=== PATIENT | male | born 1965 | race Caucasian/White ===

== ENCOUNTER 2016-08-01 02:31 | Emergency (ER) | payer OTHER ==
[~2016-08-01] VITALS: Ht 167.6 cm; Wt 108.0 kg
[2016-08-01 02:34] VITALS: BP 186/86; PULSE 110; RESP 16; TEMP 98.5; O2SAT 94
[2016-08-01] MEDS ORDERED: HYDR25TA35 PO (02:47)
[2016-08-01] MEDS ORDERED: LOSA100T PO (02:47)
[2016-08-01] MEDS ORDERED: NOVOLOGP2 SQ (02:47)
[2016-08-01] MEDS ORDERED: CARV3.12 PO (02:47)
[2016-08-01] MEDS ORDERED: HUMALOG SQ (02:47)
[2016-08-01] MEDS ORDERED: ATOR40TA16 PO (02:47)
[2016-08-01] MEDS ORDERED: FISHCAP4 PO (02:47)
[2016-08-01] MEDS ORDERED: AMLO10TA2 PO (02:47)
[2016-08-01 02:50] VITALS: RESP 16; O2SAT 90
[2016-08-01 02:50] LABS: MEAN CORPUSCULAR HGB CONC 36.4 % (32.0-36.0)
[2016-08-01] MEDS: RESP: ALBUTEROL 2.5 MG/IPRATROPIUM 0.5 MG NEB (SCH) INH (02:57)
[2016-08-01 03:00] VITALS: O2SAT 95
[2016-08-01] MEDS ORDERED: SODIUM CHLORIDE 0.9% FLUSH 5 ML FLUSH IVF PRN (03:00)
--- NOTE | 2016-08-01 03:02 | PD ---
HPI Chief Complaint: GI Complaint Time Seen by Provider: 02:41 Travel History International Travel<30 days: No Contact w/Intl Traveler<30days: No Traveled to known affect area: No History of Present Illness HPI The patient is a 51-year-old male who presents to the emergency department for hemoptysis. The patient states her last several days she's had a dry nonproductive cough, somewhat irritated, and has been using over-the- counter Mucinex. However, the patient had an episode of hemoptysis earlier tonight with several large blood clots. EMS states and they arrived the patient 's initial O2 saturation on room air was 90%, and the emergency department was 94%. The patient denies any history of tobacco use, lung cancer, or chronic bronchitis. The patient has recently traveled from [place] to [place], [place] , but denies any recent hospitalizations or surgeries. The patient states the hemoptysis was from coughing, he had no vomiting. He denies any dark colored stools. The patient does take a baby aspirin for history of previous quadruple bypass. The patient is in town for [facility], does not have a local primary physician. He does note a history of diabetes and chronic kidney disease. The patient denies any known history of pulmonary embolism or DVT. He denies any unusual swelling of the lower extremities. PFSH Past Medical History High Cholesterol: Yes Hypertension: Yes Tetanus Vaccination: < 5 Years Influenza Vaccination: No Past Surgical History Coronary Artery Bypass Graft: Yes (11 YRS AGO) Social History Alcohol Use: Yes (SOCIALLY) Tobacco Use: No Substance Use: No Allergies-Medications (Allergen,Severity, Reaction): Coded Allergies: Niacin (Verified Allergy, Mild, RASH, 08/01/16) Reported Meds & Prescriptions Reported Meds & Active Scripts Active Reported Humalog Inj (Insulin Human Lispro) 1,000 Unit/10 Ml Vial 65 Units SQ BIDAC Novolog Inj (Insulin Aspart) 1,000 Unit/10 Ml Vial 40 Units SQ TIDAC Amlodipine (Amlodipine Besylate) 10 Mg Tab 10 Mg PO DAILY Atorvastatin (Atorvastatin Calcium) 40 Mg Tab 40 Mg PO HS Hydralazine (Hydralazine HCl) 25 Mg Tab 25 Mg PO DAILY Take with a meal Losartan (Losartan Potassium) 100 Mg Tab 100 Mg PO DAILY Fish Oil + D3 (Fish Oil-Cholecalciferol) 1,200-1,000 Mg-Unit Cap 1 Cap PO DAILY Carvedilol 3.125 Mg Tab 3.125 Mg PO BID Review of Systems Except as stated in HPI: all other systems reviewed are Neg General / Constitutional: No: Fever HENT: No: Lightheadedness Cardiovascular: No: Chest Pain or Discomfort Respiratory: Positive: Cough, Shortness of Breath, Hemoptysis Gastrointestinal: No: Nausea, Vomiting, Abdominal Pain Musculoskeletal: No: Edema Neurologic: No: Dizziness Physical Exam Narrative GENERAL: Awake, alert, nontoxic-appearing 51-year-old male who appears his stated age and is in no acute respiratory distress. SKIN: Warm and dry. HEAD: Atraumatic. Normocephalic. EYES: Pupils equal and round. No scleral icterus. No injection or drainage. ENT: No nasal bleeding or discharge. Dry blood in the posterior oropharynx. NECK: Trachea midline. No JVD. CARDIOVASCULAR: Regular, tachycardic with a heart rate of 105. RESPIRATORY: No accessory muscle use. Wheezes noted bilaterally in the lower lung olguin. GASTROINTESTINAL: Abdomen soft, non-tender, nondistended. No rebound tenderness. MUSCULOSKELETAL: No obvious deformities. No clubbing. No cyanosis. No edema. NEUROLOGICAL: Awake and alert. No obvious cranial nerve deficits. Motor grossly within normal limits. Normal speech. PSYCHIATRIC: Appropriate mood and affect; insight and judgment normal. Data Data Last Documented VS Vital Signs Date Time Temp Pulse Resp B/P Pulse Ox O2 Delivery O2 Flow Rate FiO2 08/01/16 06:20 98.4 96 16 163/77 95 Nasal Cannula 2 Orders Complete Blood Count With Diff (08/01/16 02:48) Comprehensive Metabolic Panel (08/01/16 02:48) Act Partial Throm Time (Ptt) (08/01/16 02:48) Prothrombin Time / Inr (Pt) (08/01/16 02:48) Magnesium (Mg) (08/01/16 02:48) Ckmb (Isoenzyme) Profile (08/01/16 02:48) Troponin I (08/01/16 02:48) Iv Access Insert/Monitor (08/01/16 02:48) Electrocardiogram (08/01/16 02:48) Ecg Monitoring (08/01/16 02:48) Oximetry (08/01/16 02:48) Oxygen Administration (08/01/16 02:48) Chest, Single Ap (08/01/16 02:48) Sodium Chloride 0.9% Flush (Ns Flush) (08/01/16 03:00) Albuterol-Ipratropium Neb (Duoneb Neb) (08/01/16 03:00) Ventilation & Perfusion Scan (08/01/16 ) CKMB (08/01/16 02:55) CKMB% (08/01/16 02:55) Labs Laboratory Tests Test 08/01/16 02:55 White Blood Count 15.3 TH/MM3 Red Blood Count 3.52 MIL/MM3 Hemoglobin 10.2 GM/DL Hematocrit 28.0 % Mean Corpuscular Volume 79.4 FL Mean Corpuscular Hemoglobin 28.9 PG Mean Corpuscular Hemoglobin 36.4 % Concent Red Cell Distribution Width 13.0 % Platelet Count 291 TH/MM3 Mean Platelet Volume 8.8 FL Neutrophils (%) (Auto) 70.9 % Lymphocytes (%) (Auto) 18.2 % Monocytes (%) (Auto) 8.8 % Eosinophils (%) (Auto) 1.6 % Basophils (%) (Auto) 0.5 % Neutrophils # (Auto) 10.9 TH/MM3 Lymphocytes # (Auto) 2.8 TH/MM3 Monocytes # (Auto) 1.3 TH/MM3 Eosinophils # (Auto) 0.2 TH/MM3 Basophils # (Auto) 0.1 TH/MM3 CBC Comment AUTO DIFF Differential Comment AUTO DIFF CONFIRMED Prothrombin Time 10.2 SEC Prothromb Time International 0.9 RATIO Ratio Activated Partial 28.7 SEC Thromboplast Time Sodium Level 138 MEQ/L Potassium Level 3.8 MEQ/L Chloride Level 103 MEQ/L Carbon Dioxide Level 19.3 MEQ/L Anion Gap 16 MEQ/L Blood Urea Nitrogen 50 MG/DL Creatinine 2.82 MG/DL Estimat Glomerular Filtration 24 ML/MIN Rate Random Glucose 238 MG/DL Calcium Level 8.1 MG/DL Magnesium Level 1.8 MG/DL Total Bilirubin 0.2 MG/DL Aspartate Amino Transf 15 U/L (AST/SGOT) Alanine Aminotransferase 23 U/L (ALT/SGPT) Alkaline Phosphatase 89 U/L Total Creatine Kinase 119 U/L Creatine Kinase MB 0.9 NG/ML Troponin I LESS THAN 0.02 NG/ML Total Protein 7.6 GM/DL Albumin 2.8 GM/DL MDM Medical Decision Making Medical Screen Exam Complete: Yes Emergency Medical Condition: Yes Medical Record Reviewed: Yes Interpretation(s) EKG reveals sinus tachycardia with a heart rate of 100. Nonspecific T wave changes. Laboratory Tests Test 08/01/16 02:55 White Blood Count 15.3 TH/MM3 Red Blood Count 3.52 MIL/MM3 Hemoglobin 10.2 GM/DL Hematocrit 28.0 % Mean Corpuscular Volume 79.4 FL Mean Corpuscular Hemoglobin 28.9 PG Mean Corpuscular Hemoglobin 36.4 % Concent Red Cell Distribution Width 13.0 % Platelet Count 291 TH/MM3 Mean Platelet Volume 8.8 FL Neutrophils (%) (Auto) 70.9 % Lymphocytes (%) (Auto) 18.2 % Monocytes (%) (Auto) 8.8 % Eosinophils (%) (Auto) 1.6 % Basophils (%) (Auto) 0.5 % Neutrophils # (Auto) 10.9 TH/MM3 Lymphocytes # (Auto) 2.8 TH/MM3 Monocytes # (Auto) 1.3 TH/MM3 Eosinophils # (Auto) 0.2 TH/MM3 Basophils # (Auto) 0.1 TH/MM3 CBC Comment AUTO DIFF Differential Comment AUTO DIFF CONFIRMED Prothrombin Time 10.2 SEC Prothromb Time International 0.9 RATIO Ratio Activated Partial 28.7 SEC Thromboplast Time Sodium Level 138 MEQ/L Potassium Level 3.8 MEQ/L Chloride Level 103 MEQ/L Carbon Dioxide Level 19.3 MEQ/L Anion Gap 16 MEQ/L Blood Urea Nitrogen 50 MG/DL Creatinine 2.82 MG/DL Estimat Glomerular Filtration 24 ML/MIN Rate Random Glucose 238 MG/DL Calcium Level 8.1 MG/DL Magnesium Level 1.8 MG/DL Total Bilirubin 0.2 MG/DL Aspartate Amino Transf 15 U/L (AST/SGOT) Alanine Aminotransferase 23 U/L (ALT/SGPT) Alkaline Phosphatase 89 U/L Total Creatine Kinase 119 U/L Creatine Kinase MB 0.9 NG/ML Troponin I LESS THAN 0.02 NG/ML Total Protein 7.6 GM/DL Albumin 2.8 GM/DL Nuclear medicine ventilation perfusion scan reveals low probability for pulmonary embolism. Differential Diagnosis Differential diagnosis includes bronchitis, pulmonary embolism, lung carcinoma, AV malformation, AV fistula, upper GI bleed, esophageal varices. Narrative Course IV was established, labs are drawn and sent, and the patient was placed on cardiac telemetry monitoring and continuous pulse oximetry monitoring. Chest x- ray was obtained. EKG was ordered and interpreted. CT pulmonary angiogram was ordered to evaluate for pulmonary embolism. The patient's creatinine was 2.82, therefore, CT pulmonary angiogram was canceled. VQ scan was ordered. Chest x- ray was ordered. Laboratory evaluation reveals a white count of 15.3, however, patient is afebrile. Hemoglobin is 10.0. Creatinine is elevated at 2.82, patient does have a history of chronic kidney disease. VQ scan was negative for pulmonary embolism. Most likely the patient may have underlying bronchitis , no evidence of tumor on chest x-ray. The patient is advised to follow-up with his primary physician if symptoms persist as he may need a follow-up with pulmonology for bronchoscopy if symptoms persist. Patient will be treated for bronchitis with prednisone, Zithromax, and albuterol inhaler. He is advised to return if symptoms worsen or progress. Diagnosis Primary Impression: Hemoptysis, unspecified Additional Impression: Bronchitis Patient Instructions: General Instructions Additional Instructions: Medications as directed. Please provide a patient a copy of his VQ scan results , x-ray results, and lab results at discharge. Return sooner if symptoms worsen or progress. Med/Other Pt SpecificInfo: Prescription(s) given Scripts Albuterol 18 GM Inh (Ventolin Hfa 18 GM Inh)90 Mcg/Act Aer2 Puff INH Q4H PRN ( SHORTNESS OF BREATH) #1 INHALER Ref 0 Prov:Hai Sharp MD 08/01/16 Azithromycin (Zithromax Z-Zechariah)250 Mg [id number] Mg PO DIRECTED #1 DSPK Ref 0 500 MG (2 tabs) day 1, then 1 tab days 2-5. Prov:Hai Sharp MD 08/01/16 Prednisone (Deltasone)20 Mg Tab40 Mg PO DAILY 5 Days Ref 0 Prov:Hai Sharp MD 08/01/16 Disposition: 01 DISCHARGE HOME Condition: Stable Hai Sharp MD Aug 01, 2016 03:02
[2016-08-01 03:03] LABS: AUTOMATED NEUTROPHIL # 10.9 TH/MM3 (1.8-7.7); BASOPHIL # 0.1 TH/MM3 (0-0.2); BASOPHIL % 0.5 % (0.0-2.0); EOSINOPHIL # 0.2 TH/MM3 (0-0.4); EOSINOPHIL % 1.6 % (0.0-4.0); LYMPH % 18.2 % (9.0-44.0); LYMPHOCYTE # 2.8 TH/MM3 (1.0-4.8); MEAN CELL VOLUME 79.4 FL (80.0-100.0); MEAN CORPUSCULAR HEMOGLOBIN 28.9 PG (27.0-34.0); MONO % 8.8 % (0.0-8.0); NEUT % 70.9 % (16.0-70.0); PLATELET COUNT 291 TH/MM3 (150-450); RED BLOOD COUNT 3.52 MIL/MM3 (4.50-5.90); WHITE BLOOD COUNT 15.3 TH/MM3 (4.0-11.0)
[2016-08-01 03:06] LABS: HEMO FLAGS AUTO DIFF
[2016-08-01 03:15] LABS: APTT (PATIENT) 28.7 SEC (24.3-30.1); INTERNATIONAL NORMALIZED RATIO 0.9 RATIO; PROTHROMBIN TIME - PATIENT 10.2 SEC (9.8-11.6)
[2016-08-01 03:25] LABS: ANION GAP 16 MEQ/L (5-15); AST (GOT) 15 U/L (15-37); BICARBONATE 19.3 MEQ/L (21.0-32.0); BLOOD UREA NITROGEN 50 MG/DL (7-18); CHLORIDE 103 MEQ/L (98-107); GLOMERULAR FILTRATION RATE 24 ML/MIN (>89); MAGNESIUM 1.8 MG/DL (1.5-2.5); POTASSIUM 3.8 MEQ/L (3.5-5.1); SODIUM (NA) 138 MEQ/L (136-145)
--- NOTE | 2016-08-01 03:35 | RADRPT ---
EXAM DATE/TIME: 08/01/2016 03:18 [facility] COMPARISON: No previous studies available for comparison. INDICATIONS : Short of breath. MEDICAL HISTORY : Cardiovascular disease. SURGICAL HISTORY : CABG. ENCOUNTER: Initial ACUITY: 1 day PAIN SCORE: 6/10 LOCATION: Bilateral chest FINDINGS: Median sternotomy wires and cardiomegaly noted. Lungs are clear. Osseous structures are intact. CONCLUSION: No acute disease. Song Rivas MD on August 01, 2016 at 3:34 Board Certified Radiologist. This report was verified electronically.
[2016-08-01 03:41] LABS: ALKALINE PHOSPHATASE 89 U/L (45-117); ALT (GPT) 23 U/L (12-78); CREATINE KINASE 119 U/L (39-308); TOTAL BILIRUBIN ADULT 0.2 MG/DL (0.2-1.0)
[2016-08-01 03:57] LABS: CKMB 0.9 NG/ML (0.5-3.6)
[2016-08-01 04:00] VITALS: BP 167/78; PULSE 92; RESP 16; O2SAT 95
[2016-08-01 04:54] LABS: SCAN/DIFF AUTO DIFF CONFIRMED
[2016-08-01 06:20] VITALS: BP 163/77; PULSE 96; RESP 16; TEMP 98.4; O2SAT 95
--- NOTE | 2016-08-01 06:34 | RADRPT ---
EXAM DATE/TIME: 08/01/2016 05:19 [facility] COMPARISON: CHEST SINGLE AP, August 01, 2016, 3:18. INDICATIONS : Dyspnea and hemoptysis. DOSE: 1.3 mCi Tc99m DTPA 8.8 mCi Tc99m MAA MEDICAL HISTORY : Hypertension. Renal insufficiency, chronic. Diabetes mellitus type 2. SURGICAL HISTORY : CABG Rotator cuff, right. Rotator cuff, left. ENCOUNTER: Initial ACUITY: 1 day PAIN SCALE: 0/10 LOCATION: chest TECHNIQUE: Following five minutes of tidal breathing of DTPA aerosol, planar images of the lungs were performed in eight projections. The patient was then injected with MAA, and eight-view perfusion scan was perf ormed. FINDINGS: There is a homogeneous pattern of aerosol delivery to the periphery of both lungs. No focal ventilat ory defects are seen. The perfusion lung scan demonstrates a homogenous pattern of uptake in both lungs. No segmental or s ubsegmental defects are seen. CONCLUSION: 1. Low probability for pulmonary embolism. Song Rivas MD on August 01, 2016 at 6:32 Board Certified Radiologist. This report was verified electronically.
[2016-08-01] MEDS ORDERED: VENTAER INH (06:45)
[2016-08-01] MEDS ORDERED: ZITHTAB PO (06:45)
[2016-08-01] MEDS ORDERED: PRED-503 PO (06:45)
[2016-08-01 06:58] VITALS: BP 171/68; TEMP 98.5
--- NOTE | 2016-08-01 14:37 | EKG ---
Date Performed: 08/01/2016 Time Performed: 03:37:21 PTAGE: 51 years EKG: SINUS TACHYCARDIA POSSIBLE LEFT ATRIAL ENLARGEMENT NONSPECIFIC T-WAVE ABNORMALITY ABNORMAL RHYTHM ECG NO PREVIOUS TRACING DOCTOR: Romeo Atkinson Interpretating Date/Time 08/01/2016 14:35:42
== END 2016-08-01 07:00 | disposition home or self-care (01) ==
LOC: NEPE 02:31
DX: R04.2 Hemoptysis (principal); J40 Bronchitis, not specified as acute or chronic; R94.31 Abnormal electrocardiogram [ECG] [EKG]; E11.9 Type 2 diabetes mellitus without complications; I12.9 Hypertensive chronic kidney disease with stage 1 through stage 4 chronic kidney disease, or unspecified chronic kidney disease; N18.9 Chronic kidney disease, unspecified; E78.00 Pure hypercholesterolemia, unspecified; Z79.82 Long term (current) use of aspirin; Z79.4 Long term (current) use of insulin; Z95.1 Presence of aortocoronary bypass graft
CPT/HCPCS: 71010; 78582; 80053; 82550; 82552; 83735; 84484; 85025; 85610; 85730; 93005; 94640; 94664; 99285; A9540; A9567